=== PATIENT | female | born 1985 | race Caucasian/White ===

== ENCOUNTER 2017-02-23 15:01 | Emergency (ER) | payer BC, OTHER ==
[2017-02-23] MEDS ORDERED: Diphtheria,Pertussis(Acell),Tetanus Vaccine 0.5 ML SDV IM ONE (15:46)
--- NOTE | 2017-02-23 15:46 | EDM.PDOC ---
ED HPI GENERAL MEDICAL PROBLEM - General Chief Complaint: Laceration Stated Complaint: Laceration Time Seen by Provider: 02/23/17 15:30 Source of Information: Reports: Patient, RN Notes Reviewed History Limitations: Reports: No Limitations - History of Present Illness INITIAL COMMENTS - FREE TEXT/NARRATIVE: 31 year old female presents to the ED with a laceration to the tip of her left ring finger. The injury occurred while working with a meat elena. She has good sensation to the finger. Nail is intact. Her tetanus is not up to date. 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 Denies: Numbness, Tingling ED EXAM, SKIN/RASH Exam: See Below Exam Limited By: No Limitations General Appearance: Alert, WD/WN, No Apparent Distress Skin: Warm, Dry, Other (superficial laceration to tip of finger. The wound margin are well approximated. No subcutaneous tissue involvement. ) Course - Vital Signs Last Recorded V/S: Last Vital Signs Temp 98.2 F 02/23/17 15:08 Pulse 106 H 02/23/17 15:08 Resp 18 02/23/17 15:08 BP Pulse Ox 96 02/23/17 15:08 - Orders/Labs/Meds Orders: Active Orders 24 hr Category Date Time Status Vaccines to be Administered [RC] PER UNIT ROUTINE Care 02/23/17 15:46 Ordered Meds: Medications Discontinued Medications Generic Name Dose Route Start Last Admin Trade Name Rosalee PRN Reason Stop Dose Admin Diphtheria/Tetanus/Acell Pertussis 0.5 ml 02/23/17 15:46 02/23/17 16:09 Adacel IM 02/23/17 15:47 0.5 ml .ONCE ONE Administration - Re-Assessments/Exams Free Text/Narrative Re-Assessment/Exam: Wound is a superficial laceration to tip of finger. The wound margin are well approximated. No subcutaneous tissue involvement. Treated with Dermabond for protection of the tip of the finger. No sutures needed. Tdap updated. Departure - Departure Time of Disposition: 15:45 Disposition: Home, Self-Care 01 Condition: Good Clinical Impression: Laceration - Discharge Information Instructions: Laceration Care, Adult Referrals: PCP,None [Ordering Only Provider] - Forms: ED Department Discharge Additional Instructions: Laceration with Dermabond repair: No need for band aids or bandages, the adhesive itself acts as a water- resistant bandage. Antibiotic ointment should not be used because it can break down the adhesive prematurely. Patients may shower while the adhesive is on the skin, but should not soak or scrub the area for 7 to 10 days. Avoid baths as much as possible, no submersion of head until the glue is off. Wet skin should be gently patted dry. The adhesive will peel off when the outer skin layer sloughs off, usually by 5 to 7 days Antibiotic ointment or petroleum jelly can be applied to the wound if the adhesive does not come off on its own. Return to clinic if signs or symptoms of infection arise, including increased redness, swelling, drainage, or fever - My Orders Last 24 Hours: My Active Orders 02/23/17 15:46 Vaccines to be Administered [RC] PER UNIT ROUTINE - Assessment/Plan Last 24 Hours: My Active Orders 02/23/17 15:46 Vaccines to be Administered [RC] PER UNIT ROUTINE
== END 2017-02-23 16:10 | disposition home or self-care (01) ==
LOC: JD.ED 15:01
DX: S61.215A Laceration without foreign body of left ring finger without damage to nail, initial encounter (principal); F32.9 Major depressive disorder, single episode, unspecified; Z23 Encounter for immunization; Z87.891 Personal history of nicotine dependence; Z79.899 Other long term (current) drug therapy; Z91.040 Latex allergy status; Z91.09 Other allergy status, other than to drugs and biological substances; W26.0XXA Contact with knife, initial encounter; Y93.89 Activity, other specified; Y99.0 Civilian activity done for income or pay
CPT/HCPCS: 12001; 90471; 90715; 99282-25; 99283-25

== ENCOUNTER 2018-11-14 01:00 | Emergency (ER) | payer BC ==
[2018-11-14 01:11] VITALS: BP 167/91
--- NOTE | 2018-11-14 03:01 | EDM.PDOC ---
ED HPI GENERAL MEDICAL PROBLEM - General Chief Complaint: ENT Problem Stated Complaint: SORE THROAT/EAR PAIN Time Seen by Provider: 11/14/18 01:52 - History of Present Illness INITIAL COMMENTS - FREE TEXT/NARRATIVE: 33-year-old female presents emergency room with sore throat. This started yesterday later she noticed some ear discomfort coming from it. She has not had any fevers but she's felt a little chilled. She has not had any body aches. She's not had any new rashes. She has no other complaints at this time. 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 Head Pain Score (Numeric/FACES): 10 - Related Data Allergies Allergy/AdvReac Type Severity Reaction Status Date / Time latex Allergy Rash Verified 02/23/17 15:05 nickel [Nickel] Allergy Rash Verified 03/13/14 22:31 Home Meds: Home Meds Albuterol Sulfate [Albuterol Sulfate HFA] 2 puff ASDIRECTED PRN 03/13/14 [ History] Venlafaxine [Effexor XR] 150 mg DAILY 03/13/14 [History] Albuterol [Proventil Neb Soln] 2.5 mg NEB Q4HR PRN #4 neb 03/14/14 [Rx] Ibuprofen [Motrin] 200 mg PO Q4H PRN #50 tablet 05/11/15 [Rx] Amoxicillin 500 mg PO TID #30 tab 11/14/18 [Rx] Past Medical History Respiratory History: Reports: Asthma 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 Denies: Fever HEENT: Reports: Ear Pain, Throat Pain Respiratory: Reports: No Symptoms Cardiovascular: Reports: No Symptoms GI/Abdominal: Reports: No Symptoms ED EXAM, ENT - Physical Exam Exam: See Below Exam Limited By: No Limitations General Appearance: Alert, No Apparent Distress Eye Exam: Bilateral Eye: Normal Inspection Ears: Normal External Exam, Normal Canal, Hearing Grossly Normal, Normal TMs Nose: Normal Inspection, Normal Mucousa, No Blood Mouth/Throat: Normal Inspection, Normal Gums, Normal Lips, Other (She has an exudative pharyngitis small amount of exudates noted on the tonsils that are moderately inflamed) Head: Atraumatic, Normocephalic Neck: Normal Inspection, Supple, Non-Tender, Full Range of Motion, Lymphadenopathy (L), Lymphadenopathy (R), Other (Mild adenopathy) Respiratory/Chest: No Respiratory Distress, Lungs Clear, Normal Breath Sounds Cardiovascular: Regular Rate, Rhythm, No Edema, No Murmur GI/Abdominal: Normal Bowel Sounds, Soft, Non-Tender Course - Vital Signs Last Recorded V/S: Last Vital Signs Temp 37.3 C 11/14/18 01:08 Pulse 115 H 11/14/18 01:08 Resp 20 11/14/18 01:08 BP 167/91 H 11/14/18 01:08 Pulse Ox 96 11/14/18 01:08 - Orders/Labs/Meds Orders: Active Orders 24 hr Category Date Time Status Rapid Strep w/culture conf [STREP SCRN A RAPID W CULT Lab 11/14/18 02:03 Results CONF] [RM] Stat - Re-Assessments/Exams Free Text/Narrative Re-Assessment/Exam: 11/14/18 03:19 Rapid strep is positive Departure - Departure Time of Disposition: 03:19 Disposition: Home, Self-Care 01 Clinical Impression: Strep pharyngitis - Discharge Information Prescriptions: Amoxicillin 500 mg PO TID #30 tab Referrals: Ruchi Maya PA-C [Primary Care Provider] - Forms: ED Department Discharge Additional Instructions: Return to the emergency room with any questions or problems. Follow-up with your regular provider as needed. Take all the antibiotics until all gone.
[2018-11-14] MEDS ORDERED: Amoxicillin 500 MG Cap PO ONE (03:24)
== END 2018-11-14 03:30 | disposition home or self-care (01) ==
LOC: JD.ED 01:00
DX: J02.0 Streptococcal pharyngitis (principal); E11.9 Type 2 diabetes mellitus without complications; F41.9 Anxiety disorder, unspecified; F32.9 Major depressive disorder, single episode, unspecified; J45.909 Unspecified asthma, uncomplicated; Z79.899 Other long term (current) drug therapy; Z91.040 Latex allergy status; Z91.09 Other allergy status, other than to drugs and biological substances
CPT/HCPCS: 87430; 99283; A9270

== ENCOUNTER 2019-04-25 22:50 | Emergency (ER) | payer SELFPAY ==
[2019-04-25 22:59] VITALS: BP 146/87; PULSE 88
[2019-04-25] MEDS ORDERED: Albuterol/Ipratropium 3.0-0.5 MG/3 ML Neb Soln NEB ONE (23:37)
[2019-04-25] MEDS ORDERED: predniSONE 20 MG Tab PO STA (23:39)
--- NOTE | 2019-04-25 23:43 | EDM.PDOC ---
ED HPI GENERAL MEDICAL PROBLEM - General Chief Complaint: Respiratory Problem Stated Complaint: SOB/COUGH Time Seen by Provider: 04/25/19 23:20 Source of Information: Reports: Patient History Limitations: Reports: No Limitations - History of Present Illness INITIAL COMMENTS - FREE TEXT/NARRATIVE: Ms. Fraga is a pleasant 33-year-old woman with a past medical history significant for suspected asthma, and obstructive sleep apnea, for which she uses nightly CPAP. She states that she has had a cough productive of greenish sputum, and dyspnea on exertion, for the past 4 weeks. Her cough is worse at night. She also reports 4 weeks of sinus pressure. She had a temperature of 101 last Thursday, but none since, and she is afebrile in the ED today. She states that she has been wheezing, including now. She has been taking an albuterol by nebulizer every 4 hours for the past 4 weeks, along with NyQuil, DayQuil, and Tylenol Sinus, but she is not sure if they are helping. She has vomited when her cough has been excessive, otherwise, she has not had any recent nausea, constipation, diarrhea, or urinary symptoms. The patient has a history of diabetes, but states that she never checks her blood sugar. She states that her HgbA1c about 6 months ago was in the 5 percentage. The patient's PCP is NELL Mann. She last saw her about 2-3 months ago. The patient has not received an influenza vaccine this season. Chest Pain Score (Numeric/FACES): 5 - Related Data Allergies Allergy/AdvReac Type Severity Reaction Status Date / Time latex Allergy Rash Verified 04/25/19 22:58 nickel [Nickel] Allergy Rash Verified 04/25/19 22:58 Home Meds: Home Meds Venlafaxine [Effexor XR] 150 mg PO DAILY 03/13/14 [History] Albuterol [Proventil Neb Soln] 2.5 mg NEB Q4HR PRN #4 neb 03/14/14 [Rx] Ibuprofen [Motrin] 200 mg PO Q4H PRN #50 tablet 05/11/15 [Rx] lamoTRIgine [Lamictal] 200 mg PO DAILY 04/25/19 [History] metFORMIN HCl [Metformin HCl] 1,000 mg PO BID 04/25/19 [History] predniSONE [Prednisone] 1 tab PO QPM #5 tablet 04/26/19 [Rx] Past Medical History Respiratory History: Reports: Asthma (suspected, not tested), Sleep Apnea ( nightly CPAP 7) Psychiatric History: Reports: Anxiety, Bipolar, Depression Endocrine/Metabolic History: Reports: Diabetes, Type II, Obesity/BMI 30+ - Infectious Disease History Infectious Disease History: Reports: Chicken Pox - Past Surgical History HEENT Surgical History: Reports: Oral Surgery (wisdom teeth extracton) GI Surgical History: Reports: Cholecystectomy (2006) Female Surgical History: Reports: D&C (for therapeutic , x 1) Social & Family History - Family History Family Medical History: Noncontributory - Tobacco Use Smoking Status *Q: Former Smoker Years of Tobacco use: 1 Packs/Tins Daily: 1 Month/Year Tobacco Last Used: Quit Mar 2019 - Caffeine Use Caffeine Use: Reports: None - Alcohol Use Alcohol Use History: Yes Alcohol Use Frequency: Socially - Recreational Drug Use Recreational Drug Use: No - Living Situation & Occupation Living situation: Reports: , with Family Occupation: Employed ([employer]) ED ROS GENERAL - Review of Systems Review Of Systems: ROS reveals no pertinent complaints other than HPI. ED EXAM, GENERAL - Physical Exam Exam: See Below Exam Limited By: No Limitations General Appearance: Alert, WD/WN, No Apparent Distress Eye Exam: Bilateral Eye: EOMI, Normal Inspection Ears: Normal External Exam, Normal Canal, Hearing Grossly Normal, Normal TMs Nose: Normal Inspection, No Blood, Other (Moderate bilateral nasal mucosa edema) Throat/Mouth: Normal Inspection, Normal Lips, Normal Teeth, Normal Gums, Normal Oropharynx (No tonsillar or posterior oropharyngeal erythema or swelling), Normal Voice, No Airway Compromise Head: Atraumatic, Normocephalic Neck: Normal Inspection, Supple, Non-Tender, Full Range of Motion. No: Lymphadenopathy (L), Lymphadenopathy (R) Respiratory/Chest: No Respiratory Distress, No Accessory Muscle Use, Decreased Breath Sounds (mild), Wheezing (expiratory, faint, worse when supine), Prolonged Expiration (mild). No: Crackles, Rhonchi, Stridor Cardiovascular: Normal Peripheral Pulses, Regular Rate, Rhythm, No Edema, No Gallop, No JVD, No Murmur, No Rub Peripheral Pulses: 4+: Radial (L), Radial (R) GI/Abdominal: Normal Bowel Sounds, Soft, Non-Tender, No Organomegaly, No Distention, No Abnormal Bruit, No Mass (Female) Exam: Deferred Rectal (Female) Exam: Deferred Back Exam: Normal Inspection, Full Range of Motion, NT Extremities: Normal Inspection, Normal Range of Motion, No Pedal Edema, Normal Capillary Refill Neurological: Alert, Oriented, Normal Cognition, No Motor/Sensory Deficits Psychiatric: Normal Affect Skin Exam: Warm, Dry, Intact, Normal Color, No Rash Course - Vital Signs Last Recorded V/S: Last Vital Signs Temp 36.3 C 04/25/19 22:56 Pulse 88 04/25/19 22:56 Resp 18 04/25/19 22:56 BP 146/87 H 04/25/19 22:56 Pulse Ox 95 04/25/19 23:37 - Orders/Labs/Meds Labs: Laboratory Tests 04/25/19 04/25/19 04/25/19 Range/Units 23:50 23:50 23:50 WBC 13.59 H (3.98-10.04) K/mm3 RBC 4.82 (3.98-5.22) M/mm3 Hgb 13.7 (11.2-15.7) gm/dl Hct 43.2 (34.1-44.9) % MCV 89.6 (79.4-94.8) fl MCH 28.4 (25.6-32.2) pg MCHC 31.7 L (32.2-35.5) g/dl RDW Std Deviation 43.6 (36.4-46.3) fL Plt Count 375 H (182-369) K/mm3 MPV 9.7 (9.4-12.3) fl Neutrophils % (Manual) 63 H (40-60) % Band Neutrophils % 0 (0-10) % Lymphocytes % (Manual) 24 (20-40) % Atypical Lymphs % 0 % Monocytes % (Manual) 8 (2-10) % Eosinophils % (Manual) 4 (0.7-5.8) % Basophils % (Manual) 1 (0.1-1.2) Platelet Estimate Adequate Plt Morphology Comment Normal RBC Morph Comment Normal D-Dimer, Quantitative 0.27 (0.19-0.50) mg/L Sodium 141 (136-145) mEq/L Potassium 4.0 (3.5-5.1) mEq/L Chloride 105 (98-107) mEq/L Carbon Dioxide 26 (21-32) mEq/L Anion Gap 14.0 (5-15) BUN 14 (7-18) mg/dL Creatinine 1.0 (0.55-1.02) mg/dL Est Cr Clr Drug Dosing 72.68 mL/min Estimated GFR (MDRD) > 60 (>60) mL/min BUN/Creatinine Ratio 14.0 (14-18) Glucose 95 (74-106) mg/dL Calcium 9.0 (8.5-10.1) mg/dL Total Bilirubin 0.2 (0.2-1.0) mg/dL AST 17 (15-37) U/L ALT 32 (14-59) U/L Alkaline Phosphatase 104 (46-116) U/L Total Protein 7.8 (6.4-8.2) g/dl Albumin 3.6 (3.4-5.0) g/dl Globulin 4.2 gm/dL Albumin/Globulin Ratio 0.9 L (1-2) Meds: Medications Discontinued Medications Generic Name Dose Route Start Last Admin Trade Name Freq PRN Reason Stop Dose Admin Albuterol/Ipratropium 3 ml 04/25/19 23:37 04/25/19 23:45 Duoneb 3.0-0.5 Mg/3 Ml NEB 04/25/19 23:38 3 ml ONETIME ONE Administration Influenza Virus Vaccine 1 each 04/25/19 23:37 Pharmacy To Dose - Influenza Vaccine IM 04/25/19 23:38 ONETIME ONE Influenza Virus Vaccine 60 mcg 04/25/19 23:45 04/26/19 01:03 Fluzone Quad [id number] Syringe IM 04/25/19 23:46 60 mcg .ONCE ONE Administration Prednisone 60 mg 04/25/19 23:39 04/25/19 23:44 Prednisone PO 04/25/19 23:40 60 mg ONETIME STA Administration - Re-Assessments/Exams Free Text/Narrative Re-Assessment/Exam: 04/25/19 23:39 The patient appears to be suffering from an asthma exacerbation versus acute bronchitis, due to either a viral illness or allergic rhinitis, as suggested by her feeling sinus pressure. I have ordered blood work, a chest x-ray, and an influenza swab to evaluate for an infectious process, but in the meantime, the patient will be treated with a DuoNeb, possible additional albuterol, and oral prednisone. The patient will also receive an influenza vaccine during this ED visit. 04/26/19 00:48 The patient's CBC is remarkable for a WBC count was elevated at 13.59, but with 0% bandemia and 63% neutrophilia. Her platelets are elevated at 375,000. The remainder of her CBC is unremarkable. Her CMP is unremarkable. Her D-dimer is within normal limits at 0.27. 2-view chest radiograph reviewed. The cardiac silhouette is within normal limits. No pulmonary vascular congestion. No pleural effusions. No focal infiltrate. There are increased lung markings consistent with bronchitis. No hyperinflation. No pneumothorax. Formal read per the Radiologist pending. I suspect that the patient is suffering from chronic bronchitis, more likely than an asthma exacerbation, since: Her symptoms are primarily persistent coughing, not wheezing Her symptoms have persisted for about one month Her symptoms have not improved despite albuterol Her symptoms are worse at night, when she is supine Her chest x-ray shows increased pulmonary markings consistent with bronchitis, but does not show hyperinflation, which would be expected with an asthma exacerbation I will treat the patient with a course of prednisone, but if in fact the patient has acute bronchitis, prednisone will not help, indeed, there is no treatment that has been found to be of benefit. It will have to run its course. Departure - Departure Time of Disposition: 00:58 Disposition: Home, Self-Care 01 Condition: Good Clinical Impression: Acute bronchitis - Discharge Information *PRESCRIPTION DRUG MONITORING PROGRAM REVIEWED*: Not Applicable *COPY OF PRESCRIPTION DRUG MONITORING REPORT IN PATIENT [place]: Not Applicable Prescriptions: predniSONE [Prednisone] 1 tab PO QPM #5 tablet Instructions: Acute Bronchitis, Adult, [id number] Referrals: Ruchi Maya PA-C [Primary Care Provider] - Forms: ED Department Discharge Additional Instructions: You were seen in the emergency room for 4 weeks of a cough productive of green sputum, worse at night, shortness of breath with exertion, wheezing, and intermittent fever. Workup in the ER included blood work, an influenza swab, and a chest x-ray. Your influenza swab returned negative, you do not have a blood clot in your lungs, and you do not have pneumonia. Your workup indicates that you are suffering from acute bronchitis, a viral infection of the tubes that lead into your lungs. Unfortunately, there are no treatments for acute bronchitis - it will have to run its course. We recommend that you stop taking NyQuil, DayQuil, and Tylenol Sinus, as these medicines have been shown to be of no benefit, but do have side effects. It is less likely that you are suffering from an asthma exacerbation, however, you are being treated for a possible asthma exacerbation with oral prednisone. A prescription for prednisone has been sent to the [facility] pharmacy. Take one tablet of prednisone every evening, starting this evening, Thursday, , as prescribed. Follow-up with your PCP, NELL Mann, at the next available appointment. If any other problems, please do not hesitate to return to the ER. *You received an influenza vaccine during your ER visit.*
[2019-04-25] MEDS ORDERED: FLU Vacc QS2019-20(6MOS+)/PF 60 MCG/0.5 ML SYRINGE IM ONE (23:45)
--- NOTE | 2019-04-26 07:01 | CR ---
Chest: Two views of the chest were obtained. Comparison: Prior chest x-ray of 11/30/18. Heart size and mediastinum are within normal limits. Lung markings are mildly increased which appear fairly stable from prior exam. Lungs otherwise are clear. Bony structures are unremarkable for the patient's age. Impression: 1. Lung markings mildly increased which appear stable from previous chest x-ray. 2. Nothing acute is otherwise seen. Diagnostic code #2
== END 2019-04-26 01:11 | disposition home or self-care (01) ==
LOC: JD.ED 22:50
DX: J20.9 Acute bronchitis, unspecified (principal); E11.9 Type 2 diabetes mellitus without complications; F32.9 Major depressive disorder, single episode, unspecified; E66.9 Obesity, unspecified; Z23 Encounter for immunization; Z68.44 Body mass index [BMI] 60.0-69.9, adult; Z79.52 Long term (current) use of systemic steroids; Z79.84 Long term (current) use of oral hypoglycemic drugs; Z79.899 Other long term (current) drug therapy; Z87.891 Personal history of nicotine dependence; Z91.040 Latex allergy status; Z91.048 Other nonmedicinal substance allergy status
CPT/HCPCS: 36415; 71046; 80053; 85007; 85027; 85379; 87804; 90471; 90686; 94640; 99284; A9270; 99283; G0008; J7620-GY

== ENCOUNTER 2019-07-15 20:50 | Emergency (ER) | payer BC ==
[2019-07-15 21:01] VITALS: BP 139/86; PULSE 88
[2019-07-15] MEDS ORDERED: Albuterol/Ipratropium 3.0-0.5 MG/3 ML Neb Soln NEB ONE (21:18)
--- NOTE | 2019-07-15 21:45 | EDM.PDOC ---
ED HPI GENERAL MEDICAL PROBLEM - General Chief Complaint: Respiratory Problem Stated Complaint: SORE THROAT CONGESTION Time Seen by Provider: 07/15/19 21:09 Source of Information: Reports: Patient History Limitations: Reports: No Limitations - History of Present Illness INITIAL COMMENTS - FREE TEXT/NARRATIVE: This is a 33-year-old female. For the last 2 to 3 days she has been coughing up phlegm. She coughs so hard that she will vomit. She complains of a sore throat that started today. She is also had some mild diarrhea today. She has a history of asthma and she uses an inhaler and she has been wheezing some as well. Her and child were diagnosed with influenza B on Thursday. She did go to the walk-in clinic today and they told her they would call her with the results of the test but they never called her so she comes to the ER for evaluation. She does not know if she has had a fever since she has not documented it but she does complain of chills and sweating over the last several days. She says she has lots of yellow drainage from her nose and she feels awful. She does have a history of recurrent strep throat. Chest Pain Score (Numeric/FACES): 9 - Related Data Allergies Allergy/AdvReac Type Severity Reaction Status Date / Time latex Allergy Rash Verified 05/24/19 15:37 nickel [Nickel] Allergy Rash Verified 05/24/19 15:37 Home Meds: Home Meds lamoTRIgine [Lamictal] 200 mg PO DAILY 04/25/19 [History] metFORMIN HCl [Metformin HCl] 1,000 mg PO BID 04/25/19 [History] Venlafaxine [Effexor XR] 225 mg PO DAILY 05/24/19 [History] Albuterol [Proventil Neb Soln] 1.25 mg NEB Q4HRRT PRN #30 neb 07/15/19 [Rx] Azithromycin 250 mg PO QAM #6 tablet 07/15/19 [Rx] Past Medical History Respiratory History: Reports: Asthma, Sleep Apnea Other Respiratory History: uses cpap [employer] History: Reports: Therapeutic Neurological History: Reports: Concussion Psychiatric History: Reports: Anxiety, Bipolar, Depression Endocrine/Metabolic History: Reports: Diabetes, Type II, Obesity/BMI 30+ - Infectious Disease History Infectious Disease History: Reports: Chicken Pox - Past Surgical History HEENT Surgical History: Reports: Oral Surgery GI Surgical History: Reports: Cholecystectomy Female Surgical History: Reports: D&C Social & Family History - Family History Family Medical History: Noncontributory - Caffeine Use Caffeine Use: Reports: Coffee, Soda, Tea - Living Situation & Occupation Living situation: Reports: , with Family Occupation: Employed ([employer]) ED ROS GENERAL - Review of Systems Review Of Systems: See Below Constitutional: Reports: Fever, Chills, Fatigue HEENT: Reports: Rhinitis, Throat Pain, Throat Swelling Respiratory: Reports: Wheezing, Cough Cardiovascular: Reports: No Symptoms Endocrine: Reports: Fatigue GI/Abdominal: Reports: Diarrhea, Vomiting. Denies: Abdominal Pain, Constipation , Nausea : Reports: No Symptoms Musculoskeletal: Reports: Other (Has a lot of aching all over) Skin: Reports: No Symptoms Neurological: Reports: No Symptoms Psychiatric: Reports: No Symptoms Hematologic/Lymphatic: Reports: No Symptoms ED EXAM, GENERAL - Physical Exam Exam: See Below Exam Limited By: No Limitations General Appearance: Alert, WD/WN, No Apparent Distress Eye Exam: Bilateral Eye: Normal Inspection Ears: Normal External Exam, Normal Canal, Normal TMs Nose: Nasal Drainage, Clear Rhinorrhea Throat/Mouth: Normal Lips, Normal Voice, No Airway Compromise, Other (Tonsils are enlarged and inflamed and there is white discharge noted on them) Head: Normocephalic Neck: Supple, Other (No lymphadenopathy at the angle of the jaws) Respiratory/Chest: No Respiratory Distress, Lungs Clear, Normal Breath Sounds, Other (There are wheezes noted expiratory collins) Cardiovascular: Regular Rate, Rhythm, No Murmur GI/Abdominal: Soft Back Exam: Full Range of Motion Extremities: Normal Inspection, Normal Range of Motion Neurological: Alert, Oriented Psychiatric: Normal Affect, Normal Mood Skin Exam: Warm, Dry Course - Vital Signs Last Recorded V/S: Last Vital Signs Temp 98.1 F 07/15/19 20:58 Pulse 88 07/15/19 20:58 Resp 14 07/15/19 20:58 BP 139/86 07/15/19 20:58 Pulse Ox 93 L 07/15/19 21:29 - Orders/Labs/Meds Orders: Active Orders 24 hr Category Date Time Status RT Aerosol Therapy [RC] ASDIRECTED Care 07/15/19 21:18 Active CULTURE STREP A CONFIRMATION [RM] Stat Lab 07/15/19 21:25 Results Rapid Strep w/culture conf [STREP SCRN A RAPID W CULT Lab 07/15/19 21:25 Results CONF] [RM] Stat Labs: Laboratory Tests 07/15/19 07/15/19 Range/Units 22:46 22:46 WBC 11.53 H (3.98-10.04) K/mm3 RBC 4.79 (3.98-5.22) M/mm3 Hgb 13.8 (11.2-15.7) gm/dl Hct 43.4 (34.1-44.9) % MCV 90.6 (79.4-94.8) fl MCH 28.8 (25.6-32.2) pg MCHC 31.8 L (32.2-35.5) g/dl RDW Std Deviation 46.0 (36.4-46.3) fL Plt Count 344 (182-369) K/mm3 MPV 9.8 (9.4-12.3) fl Neut % (Auto) 63.5 (34.0-71.1) % Lymph % (Auto) 24.5 (19.3-51.7) % Douglas % (Auto) 6.2 (4.7-12.5) % Eos % (Auto) 5.2 (0.7-5.8) Baso % (Auto) 0.3 (0.1-1.2) % Neut # (Auto) 7.32 H (1.56-6.13) K/mm3 Lymph # (Auto) 2.83 (1.18-3.74) K/mm3 Douglas # (Auto) 0.71 H (0.24-0.36) K/mm3 Eos # (Auto) 0.60 H (0.04-0.36) K/mm3 Baso # (Auto) 0.04 (0.01-0.08) K/mm3 Manual Slide Review Abnormal smear Monoscreen Negative (NEGATIVE) Meds: Medications Discontinued Medications Generic Name Dose Route Start Last Admin Trade Name Freq PRN Reason Stop Dose Admin Albuterol/Ipratropium 3 ml 07/15/19 21:18 07/15/19 21:27 Duoneb 3.0-0.5 Mg/3 Ml NEB 07/15/19 21:19 3 ml ONETIME ONE Administration - Re-Assessments/Exams Free Text/Narrative Re-Assessment/Exam: 07/15/19 23:38 I spoke to the patient regarding the blood results that she is negative for flu and strep however she looks like she has flu and she looks like she has strep. She is negative for Monospot and white count is 11.5 with no left shift. I will put her on a Z-Garrison and give her albuterol for breathing treatments at home since she has a nebulizer. She is to follow-up with her family doctor later this week for recheck. Departure - Departure Time of Disposition: 23:40 Disposition: Home, Self-Care 01 Condition: Fair Clinical Impression: Tonsillitis Upper respiratory infection Qualifiers: URI type: unspecified URI Qualified Code(s): J06.9 - Acute upper respiratory infection, unspecified Acute bronchitis Qualifiers: Bronchitis organism: unspecified organism Qualified Code(s): J20.9 - Acute bronchitis, unspecified - Discharge Information *PRESCRIPTION DRUG MONITORING PROGRAM REVIEWED*: No *COPY OF PRESCRIPTION DRUG MONITORING REPORT IN PATIENT KADEEM: No Prescriptions: Albuterol [Proventil Neb Soln] 1.25 mg NEB Q4HRRT PRN #30 neb PRN Reason: Wheezing Azithromycin 250 mg PO QAM #6 tablet Instructions: Upper Respiratory Infection, Adult, Tonsillitis, [id number] Referrals: Ruchi Maya PA-C [Primary Care Provider] - Forms: ED Department Discharge, ED Return to Work/School Form Additional Instructions: Go home and rest and sleep as much as possible, continue to drink lots of water to stay well-hydrated, if you notice your fever is elevating take some Tylenol or ibuprofen, start the antibiotics tomorrow when you get them, no strenuous activity stay in the house and recuperate, follow-up with your family doctor later this week for recheck or return to the ER if your symptoms worsen Sepsis Event Note - Evaluation Sepsis Screening Result: No Definite Risk - Focused Exam Vital Signs: Vital Signs Temp Pulse Resp BP Pulse Ox Pulse Ox 07/15/19 21:29 93 L 07/15/19 20:58 98.1 F 88 14 139/86 92 L Date Exam was Performed: 07/15/19 Time Exam was Performed: 23:38 - My Orders Last 24 Hours: My Active Orders 01/10/20 21:18 RT Aerosol Therapy [RC] ASDIRECTED 07/15/19 21:25 CULTURE STREP A CONFIRMATION [RM] Stat Rapid Strep w/culture conf [STREP SCRN A RAPID W CULT CONF] [RM] Stat - Assessment/Plan Last 24 Hours: My Active Orders 07/15/19 21:18 RT Aerosol Therapy [RC] ASDIRECTED 07/15/19 21:25 CULTURE STREP A CONFIRMATION [] Stat Rapid Strep w/culture conf [STREP SCRN A RAPID W CULT CONF] [] Stat
== END 2019-07-15 23:57 | disposition home or self-care (01) ==
LOC: JD.ED 20:50
DX: J01.90 Acute sinusitis, unspecified (principal); J20.9 Acute bronchitis, unspecified; J45.909 Unspecified asthma, uncomplicated; F41.9 Anxiety disorder, unspecified; F32.9 Major depressive disorder, single episode, unspecified; E66.9 Obesity, unspecified; Z68.41 Body mass index [BMI] 40.0-44.9, adult; E11.9 Type 2 diabetes mellitus without complications; Z79.84 Long term (current) use of oral hypoglycemic drugs; Z91.040 Latex allergy status; Z79.899 Other long term (current) drug therapy; Z91.048 Other nonmedicinal substance allergy status
CPT/HCPCS: 36415; 85025; 86308; 87081; 87430; 87804; 94640; 99283; 99283-25; J7620-GY

== ENCOUNTER 2021-05-19 09:32 | Emergency (ER) | payer BC ==
--- NOTE | 2021-05-19 11:34 | EDM.PDOC ---
ED HPI GENERAL MEDICAL PROBLEM - General Chief Complaint: ENT Problem Stated Complaint: ENT COMPLAINT\ FEVER Time Seen by Provider: 05/19/21 11:01 Source of Information: Reports: Patient, RN Notes Reviewed History Limitations: Reports: No Limitations - History of Present Illness INITIAL COMMENTS - FREE TEXT/NARRATIVE: Patient is a 35-year-old female who presents to the ER for evaluation of her sore throat and fever. States she is susceptible to strep although she cannot really explain why but believes is due to enlarged tonsillar tissue. Patient states that on Thursday she got somewhat of a sore throat, developed a low-grade fever. She states that her temperature had gotten as high as 102 F at home. Been using Tylenol and ibuprofen for pain management her last dose of Tylenol was around 9 AM. Also complaining of myalgias, fevers, a dry intermittent cough, some shortness of breath but no nausea/vomiting/diarrhea. Throat Pain Score (Numeric/FACES): 10 - Related Data Allergies Allergy/AdvReac Type Severity Reaction Status Date / Time latex Allergy Rash Verified 05/19/21 10:39 nickel [Nickel] Allergy Rash Verified 05/19/21 10:39 Home Meds: Home Meds Venlafaxine [Effexor XR] 150 mg PO DAILY 05/24/19 [History] Albuterol [Proventil Neb Soln] 1.25 mg NEB Q4HRRT PRN #30 neb 07/15/19 [Rx] Past Medical History Respiratory History: Reports: Asthma, Sleep Apnea Other Respiratory History: uses cpap LPN History: Reports: Therapeutic Neurological History: Reports: Concussion Psychiatric History: Reports: Anxiety, Bipolar, Depression Endocrine/Metabolic History: Reports: Diabetes, Type II, Obesity/BMI 30+ - Infectious Disease History Infectious Disease History: Reports: Chicken Pox - Past Surgical History HEENT Surgical History: Reports: Oral Surgery GI Surgical History: Reports: Cholecystectomy Female Surgical History: Reports: D&C Social & Family History - Family History Family Medical History: No Pertinent Family History - Tobacco Use Tobacco Use Status *Q: Current Some Day Tobacco User Years of Tobacco use: 10 Packs/Tins Daily: 1 Used Tobacco, but Quit: No - Caffeine Use Caffeine Use: Reports: Soda - Recreational Drug Use Recreational Drug Use: No - Living Situation & Occupation Living situation: Reports: , with Family Occupation: Employed ([employer]) ED ROS ENT - Review of Systems Review Of Systems: Comprehensive ROS is negative, except as noted in HPI. ED EXAM, ENT - Physical Exam Exam: See Below Exam Limited By: No Limitations General Appearance: Alert, WD/WN, No Apparent Distress Mouth/Throat: Normal Inspection, Normal Gums, Normal Lips, Normal Oropharynx, Normal Teeth Head: Atraumatic, Normocephalic Respiratory/Chest: No Respiratory Distress, Lungs Clear, Normal Breath Sounds, No Accessory Muscle Use, Chest Non-Tender Cardiovascular: Normal Peripheral Pulses, Regular Rate, Rhythm, No Edema GI/Abdominal: Normal Bowel Sounds, Soft, Non-Tender, No Distention, No Mass Extremities: Normal Inspection, Normal Capillary Refill Neurological: Alert, Oriented, Normal Cognition, No Motor/Sensory Deficits Psychiatric: Normal Affect, Normal Mood Skin: Warm, Dry, Intact, Normal Color, No Rash Course - Vital Signs Last Recorded V/S: Last Vital Signs Temp 97.3 F 05/19/21 10:36 Pulse 78 05/19/21 10:36 Resp 18 05/19/21 10:36 BP 173/101 H 05/19/21 10:36 Pulse Ox 95 05/19/21 10:36 - Orders/Labs/Meds Labs: Laboratory Tests 05/19/21 05/19/21 Range/Units 10:48 11:06 SARS-CoV-2 RNA (KALEB) Negative (NEGATIVE) Group A Strep (PCR) Not detected (NOT DETECT) - Re-Assessments/Exams Free Text/Narrative Re-Assessment/Exam: 05/19/21 11:33 Patient presents to the ER for evaluation of her multitude of symptoms. A strep and Covid swab were obtained at the time of triage, and a Covid/flu swab is still pending however the patient's strep screen was negative. 05/19/21 12:24 Viral screens and strep screen were negative at today's visit I will have the patient go home, try to isolate yourself away from others for the next few days and then get retested for Covid to make sure that she indeed has a second negative Covid test. Departure - Departure Time of Disposition: 12:25 Disposition: Home, Self-Care 01 Condition: Good Clinical Impression: Viral upper respiratory infection, Suspected 2019-nCoV infection - Discharge Information *PRESCRIPTION DRUG MONITORING PROGRAM REVIEWED*: No *COPY OF PRESCRIPTION DRUG MONITORING REPORT IN PATIENT KADEEM: No Instructions: COVID-19: Quarantine vs. Isolation - [facility] (06/21/2020) Referrals: Ruchi Maya PA-C [Primary Care Provider] - Forms: ED Department Discharge, ED Return to Work/School Form Additional Instructions: You were evaluated in the ER today for your [id number] symptoms. Drug screen and influenza screen were negative at today's visit. Your COVID-19 test did come back negative, but sometimes these are false negatives. These Covid screens are only about 60% accurate; and it is common to test negative initially but then test positive a few days later. Due to this, we recommend that you try to isolate yourself away from others, and get retested for COVID-19 in about 3 or 4 days. There are multiple sites that can do this, there is a drive-through clinic by the [facility], there is a walk-in clinic and our Covid clinic that can help you with these. Continue all other medications as previously prescribed. Do not hesitate to return to the ER at any time if symptoms change or worsen. Sepsis Event Note (ED) - Evaluation Sepsis Screening Result: No Definite Risk - Focused Exam Vital Signs: Vital Signs Temp Pulse Resp BP Pulse Ox 05/19/21 10:36 97.3 F 78 18 173/101 H 95
[2021-05-19 12:54] VITALS: BP 167/86; PULSE 85
== END 2021-05-19 12:51 | disposition home or self-care (01) ==
LOC: JD.ED 09:32
DX: J06.9 Acute upper respiratory infection, unspecified (principal); E11.9 Type 2 diabetes mellitus without complications; E66.9 Obesity, unspecified; Z68.42 Body mass index [BMI] 45.0-49.9, adult; Z91.048 Other nonmedicinal substance allergy status; Z91.09 Other allergy status, other than to drugs and biological substances; Z20.822 Contact with and (suspected) exposure to COVID-19; Z72.0 Tobacco use
CPT/HCPCS: 87651-QW; 87804; 99283; U0002

== ENCOUNTER 2021-10-31 13:38 | Emergency (ER) | payer BC ==
[2021-10-31] MEDS ORDERED: Acetaminophen/HYDROcodone 325-5 MG Tab PO ONE (14:20)
[2021-10-31] MEDS ORDERED: Orphenadrine 100 MG Tab.ER PO ONE (14:21)
[2021-10-31 15:25] VITALS: BP 134/83; PULSE 88
== END 2021-10-31 15:25 | disposition home or self-care (01) ==
LOC: JD.ED 13:38
DX: M25.552 Pain in left hip (principal); M54.50 Low back pain, unspecified; E11.9 Type 2 diabetes mellitus without complications; E66.9 Obesity, unspecified; Z68.30 Body mass index [BMI] 30.0-30.9, adult; Z72.0 Tobacco use; Z91.040 Latex allergy status; Z91.048 Other nonmedicinal substance allergy status
CPT/HCPCS: 99283; A9270

== ENCOUNTER 2022-04-05 08:12 | Emergency (ER) | payer SELFPAY ==
[2022-04-05 15:35] VITALS: BP 140/81; PULSE 90
== END 2022-04-05 15:26 | disposition home or self-care (01) ==
LOC: JD.ED 08:12
DX: R55 Syncope and collapse (principal); E11.9 Type 2 diabetes mellitus without complications; F17.210 Nicotine dependence, cigarettes, uncomplicated; E66.9 Obesity, unspecified; Z91.040 Latex allergy status; Z91.048 Other nonmedicinal substance allergy status; Z79.899 Other long term (current) drug therapy; Z90.49 Acquired absence of other specified parts of digestive tract
CPT/HCPCS: 36415; 70450; 70450-26; 80306; 80307; 81001; 81025; 84443; 84484; 93005; 99284